=== PATIENT | female | born 1975 | race Caucasian/White ===

== ENCOUNTER 2021-05-01 06:30 | Inpatient (IN) ==
[2021-05-01] MEDS ORDERED: BETADINE SOLN ONE (06:43)
[2021-05-01] MEDS ORDERED: ANCEF VIAL 1 GRAM IVP ONE (06:46)
[2021-05-01] MEDS ORDERED: D5 LR 1,000 ML 1,000 ML IV ONE (06:48)
[2021-05-01] MEDS ORDERED: ANCEF 1 GRAM IV PREMIX* 2 G/100 ML BAG IV ONE (06:49)
[2021-05-01] MEDS: D5 1/2 NS 1,000 ML 1,000 ML IV SCH ×6 (07:10→23:35)
[2021-05-01] MEDS ORDERED: DILAUDID INJ ONE (07:12)
[2021-05-01] MEDS ORDERED: BRIDION ONE (07:12)
[2021-05-01] MEDS ORDERED: ZEMURON 50 MG VIAL ONE (07:13)
[2021-05-01] MEDS ORDERED: OFIRMEV IV 1000 MG VIAL 1,000 MG/100 ML VIAL IV ONE (07:13)
[2021-05-01] MEDS ORDERED: FENTANYL VIAL INJ 100 mcg ONE (07:13)
[2021-05-01] MEDS ORDERED: DIPRIVAN VIAL ONE (07:16)
[2021-05-01] MEDS ORDERED: ZOFRAN INJ 4 MG VIAL ONE (07:16)
[2021-05-01] MEDS ORDERED: TORADOL 30 MG VIAL ONE (07:16)
[2021-05-01] MEDS ORDERED: EPHEDRINE SULFATE INJ ONE (07:16)
[2021-05-01] MEDS ORDERED: SUPRANE ONE (07:16)
[2021-05-01] MEDS ORDERED: DECADRON INJ ONE (07:16)
[2021-05-01] MEDS ORDERED: VERSED ONE (07:16)
[2021-05-01] MEDS ORDERED: XYLOCAINE 2 % (PLAIN) ONE (07:16)
[2021-05-01 07:34] VITALS: BMI 43.2
[2021-05-01] MEDS ORDERED: LR 1,000 ML IV 1,000 ML IV ONE (08:44)
[2021-05-01] MEDS ORDERED: ZOFRAN INJ 4 MG VIAL IVP PRN ×2 (09:47→10:18)
[2021-05-01] MEDS ORDERED: BARHEMSYS INJ IVP PRN (09:47)
[2021-05-01] MEDS ORDERED: PHENERGAN INJ 25 MG IM PRN (09:47)
[2021-05-01] MEDS ORDERED: REGLAN INJ 10 MG VIAL IVP PRN (09:47)
[2021-05-01] MEDS ORDERED: BENADRYL INJ 50 MG VIAL IVP PRN ×2 (09:47→10:18)
[2021-05-01] MEDS: DILAUDID INJ IVP PRN ×3 (09:53→10:13)
[2021-05-01] MEDS ORDERED: MORPHINE SULFATE PCA 30 MG IVP PRN (10:18)
[2021-05-01] MEDS: TORADOL 30 MG VIAL IVP PRN (22:15)
[2021-05-02] MEDS: D5 1/2 NS 1,000 ML 1,000 ML IV SCH ×3 (01:58→10:15)
[2021-05-02 05:21] LABS: BASOPHILS % (AUTO) 0.1 % (0.2-1.0); EOSINOPHILS # (AUTO) 0.3 x10^3/uL (0.0-0.2); EOSINOPHILS % (AUTO) 2.5 % (0.9-2.9); HEMATOCRIT 35.9 % (36.0-47.0); HEMOGLOBIN 12.4 g/dL (12.0-16.0); LYMPHOCYTES # (AUTO) 1.1 X10^3/uL (1.3-2.9); LYMPHOCYTES % (AUTO) 8.1 % (21.0-51.0); MEAN CORPUSCULAR HEMOGLOBIN 31.1 pg (27.0-34.0); MEAN CORPUSCULAR HGB CONC 34.5 g/dL (33.0-35.0); MEAN CORPUSCULAR VOLUME 90.2 fL (80.0-100.0); MEAN PLATELET VOLUME 9.3 fL (7.4-11.0); MONOCYTES # (AUTO) 0.9 x10^3/uL (0.3-0.8); MONOCYTES % (AUTO) 7.3 % (0.0-13.0); NEUTROPHILS # (AUTO) 10.7 x10^3/uL (2.2-4.8); PLATELET COUNT 224 X10^3/uL (150.0-450.0); RED BLOOD COUNT 3.98 X10^6/uL (3.5-5.4); RED CELL DISTRIBUTION WIDTH 12.8 % (11.6-16.5)
[2021-05-02 05:47] LABS: BLOOD UREA NITROGEN 6 mg/dL (7-18); CALCIUM 7.6 mg/dL (8.5-10.1); CARBON DIOXIDE 27.7 mmol/L (21-32); CHLORIDE 104 mmol/L (98-107); COR NA(FOR HYPERGLY) 138 mmol/L (136-145); CREATININE 0.69 mg/dL (0.55-1.02); SODIUM 138 mmol/L (136-145); eGFR NON BLACK RACES > 60 (>60)
[2021-05-02] MEDS: TORADOL 30 MG VIAL IVP PRN (06:14)
[2021-05-02] MEDS: ESTRACE PO SCH (08:45)
[2021-05-02] MEDS: COLACE CAP 100 MG PO SCH ×2 (08:45→20:20)
[2021-05-02] MEDS: PROTONIX TAB 40 MG PO SCH (08:45)
[2021-05-02] MEDS: CLARITIN PO SCH (08:45)
[2021-05-02] MEDS: PERCOCET TAB 5/325 MG PO PRN ×2 (13:28→19:22)
[2021-05-02] MEDS: BACTROBAN TOPICAL OINT TOP SCH (15:00)
[2021-05-02] MEDS: LOVENOX INJ 40 MG SYR SC SCH (16:54)
[2021-05-02] MEDS: MOTRIN TAB 800 MG PO PRN (22:45)
[2021-05-03] MEDS: BACTROBAN TOPICAL OINT TOP SCH ×2 (00:53→05:21)
[2021-05-03] MEDS: PERCOCET TAB 5/325 MG PO PRN ×2 (04:50→08:15)
[2021-05-03] MEDS: MOTRIN TAB 800 MG PO PRN (06:27)
[2021-05-03] MEDS: CLARITIN PO SCH (08:13)
[2021-05-03] MEDS: COLACE CAP 100 MG PO SCH (08:13)
[2021-05-03] MEDS: ESTRACE PO SCH (08:13)
[2021-05-03] MEDS: LOVENOX INJ 40 MG SYR SC SCH (08:14)
[2021-05-03] MEDS: PROTONIX TAB 40 MG PO SCH (08:14)
[2021-05-03 11:01] VITALS: BP 110/65
== END 2021-05-03 09:25 | disposition home or self-care (01) | DRG 743 ==
LOC: MED/SURG 06:38
PROVIDERS: ADMIT Specialist; ATTEND Specialist
DX: R10.2 Pelvic and perineal pain; D25.2 Subserosal leiomyoma of uterus; N92.5 Other specified irregular menstruation